=== PATIENT | female | born 1990 | race Caucasian/White ===

== ENCOUNTER → 2021-04-27 | Outpatient (CLI) | payer BC | LOC: RAD 12:48 | DX: R05.3 Chronic cough (principal) ==

== ENCOUNTER → 2022-09-01 | Outpatient (CLI) | payer BC | LOC: RAD 09:44 | DX: E28.2 Polycystic ovarian syndrome (principal) ==

== ENCOUNTER → 2024-05-04 | Outpatient (CLI) | payer BC | LOC: LAB 17:01 | DX: N92.5 Other specified irregular menstruation (principal) ==